=== PATIENT | male | born 1950 | race African-American/Black ===

== ENCOUNTER 2017-02-17 14:37 | Emergency (ER) | payer MEDICARE ==
[~2017-02-17 14:37] MED LIST: Iopamidol 370 76% 100 ML VIAL ONE
[2017-02-17 15:11] LABS: #Basophils 0.1 thou/uL (0.0-0.2); #Lymphocytes 0.9 thou/uL (1.20-3.40); #Monocytes 0.9 thou/uL (0.11-0.59); #Neutrophils 5.5 thou/uL (1.40-6.50); %Basophils 1.8 % (0.0-1.0); %Eosinophils 0.1 % (0.0-10.0); %Lymphocytes 12.5 % (21.0-51.0); %Monocytes 11.9 % (0.0-10.0); %Neutrophils 73.7 % (42.0-75.0); Hemoglobin 14.9 g/dL (14.0-18.0); Mean Corpuscular HGB CONC 35.4 g/dL (32.0-36.0); Mean Corpuscular Hemoglobin 33.5 pg (27.0-31.0); Mean Corpuscular Volume 94.6 fl (80.0-94.0); Mean Platelet Volume 5.8 fL (7.4-10.4); Platelet Count 280 thou/uL (130-400); RBC Distribution Width 9.9 % (11.5-14.5); Red Blood Cell (RBC) Count 4.44 mill/uL (4.70-6.10); White Blood Cell (WBC) Count 7.4 thou/uL (4.8-10.8)
[2017-02-17 15:14] LABS: INR-International Normal Ratio 1.2; PTT 32.2 SEC (22.9-36.1); Prothrombin Time 14.9 SEC (12.0-14.7)
[2017-02-17 15:25] LABS: ALT (SGPT) 18 U/L (8-55); AST (SGOT) 25 U/L (5-34); Albumin 4.5 g/dL (3.4-4.8); Alkaline Phosphatase 76 U/L (40-150); Anion Gap 17 mmol/L (10-20); BUN (Urea Nitrogen) 18 mg/dL (8.4-25.7); Bilirubin, Total 0.6 mg/dL (0.2-1.2); Calc. Creatinine Clearance 0 mL/min (70-130); Calcium 9.9 mg/dL (7.8-10.44); Carbon Dioxide 23 mmol/L (23-31); Chloride 102 mmol/L (98-107); Estimated GFR-MDRD Greater than 90; Globulin 3.7 g/dL (2.4-3.5); Glucose 114 mg/dL (80-115); Lipase 26 U/L (8-78); Potassium 3.7 mmol/L (3.5-5.1); Protein, Total 8.2 g/dL (5.8-8.1); Sodium 138 mmol/L (136-145)
[2017-02-17 15:27] LABS: CKMB 6.5 ng/mL (0-6.6); Troponin I 0.016 ng/mL (< 0.028)
--- NOTE | 2017-02-17 15:38 | CT ---
CT BRAIN: 02/17/17 HISTORY: Altered mental status. Noncontrast enhanced CT images of the brain is obtained. The brain is unremarkable. No evidence of intracranial masses, hemorrhages, strokes or contusions se en. Ventricles are of normal size. IMPRESSION: Normal CT brain. POS: [facility]
--- NOTE | 2017-02-17 15:41 | RAD ---
AP VIEW CHEST 02/17/17 HISTORY: Altered mental status. Two AP views of the chest is obtained. The lungs are well aerated. No evidence of active intrathoracic disease seen. No evidence of effusio ns, pneumonia or pneumothorax seen. IMPRESSION: Unremarkable AP view chest. POS: [facility]
[2017-02-17 15:46] LABS: Bilirubin Negative (Negative); Blood, Urine Negative (Negative); Clarity Clear (Clear); Glucose, Urine (Dipstick) Negative (Negative); Leukocyte Negative (Negative); Nitrite Negative (Negative); Protein, Urine (Dipstick) 100 mg/dL (Neg-Trace); Specific Gravity, Urine 1.025 (1.005-1.030); Urobilinogen 0.2 mg/dL (0.2-1.0); pH, Urine 5.5 (5.0-9.0)
[2017-02-17 15:50] LABS: Bacteria/HPF None Seen HPF (None Seen); RBC/HPF 0-3 HPF (0-3); Sperm/HPF 2+ HPF (None Seen); Squamous Epithelial 0-3 HPF (0-3); WBC/HPF 0-3 HPF (0-3)
[2017-02-17 15:59] LABS: Amphetamine Not Detected (NotDetected); Barbiturates Screen Not Detected (NotDetected); Benzodiazepine Screen Not Detected (NotDetected); Cocaine Metabolite Screen Not Detected (NotDetected); Medtox Control Line Valid? VALID (VALID); Methadone Not Detected (NotDetected); Methamphetamine Not Detected (NotDetected); Opiate Screen Not Detected (NotDetected); Oxycodone Screen Not Detected (NotDetected); Phencyclidine (PCP) Not Detected (NotDetected); THC/Cannabinoid Screen Detected (NotDetected); Tricyclic Screen Not Detected (NotDetected)
[2017-02-17] MEDS ORDERED: Ondansetron HCl/PF 4 MG/2 ML Vial ONE (16:51)
--- NOTE | 2017-02-17 21:23 | CT ---
EXAM: ABDOMEN CT WITH CONTRAST PELVIS CT WITH CONTRAST 02/17/17 HISTORY: Right inguinal hernia repair. Benign prostatic hypertrophy. Hypertension. Hepatitis C. Ankylosing sp ondylitis. Abdominal pain. Left upper quadrant pain. COMPARISON: None. TECHNIQUE: Abdomen and pelvic CT performed with IV contrast. Oral contrast was not administered. Coronal reform atted images are submitted for interpretation. FINDINGS: ABDOMEN CT: Lung bases are clear. Normal heart size. The visualized aorta has an overall normal caliber. There i s atherosclerosis of the infrarenal abdominal aorta with mild narrowing. Celiac artery origin, super ior mesenteric artery origin, bilateral renal arteries are unremarkable. The inferior mesenteric art victorina is not appreciated. Intra and extrahepatic portal vein is patent. Spleen, pancreas, and adrenal glands are unremarkable. The main pancreatic duct has a diameter of 0. 2 cm which is at the upper limits of normal. No obvious masses in the pancreas. There is an enhancing focus in the right hepatic lobe, measuring 0.7 cm. A flash filling hemangioma is favored. There is a hypodensity in the left hepatic lobe measu ring 0.6 cm, too small to further characterize. There is a hypodensity in the right kidney with attenuation coefficient of 28 Hounsfield units. Lesi on measures 1.6 cm. Symmetric enhancement of the kidneys. No evidence of hydronephrosis. Limited roscoe luation of both ureters due to decreased intra-abdominal fat. No obvious calcification along the exp ected course of either ureter. Decreased intra-abdominal fat limits evaluation for inflammatory change. No obvious mesenteric mass, lymphadenopathy, free air or free fluid. In the absence of oral contrast limits evaluation of the alimentary canal. Multiple fluid filled sma ll bowel loops are noted. No evidence of bowel distention. There is a fluid filled segment of small bowel that is at the upper limits of normal with a diameter of approximately 2.5 cm. This finding is nonspecific. Limited evaluation of the ileocecal junction. Appendix is difficult to appreciate on t his exam. There appears to be fecal material and fluid in the right hemicolon. There is fecal material in the sigmoid colon and rectum. PELVIC CT: The urinary bladder is unremarkable. No pelvic mass, lymphadenopathy, free air or free fluid. There is atherosclerosis involving bilateral iliac arteries. There is extensive sclerosis as well as fusion changes involving the visualized vertebra and pelvic structures, compatible with patient's h istory of ankylosing spondylolysis. IMPRESSION: 1. Limited evaluation due to lack of oral contrast and decreased intra-abdominal fat. No defini te acute abnormality in the abdomen or pelvis is appreciated. 2. Incomplete evaluated right renal cortical lesion. Nonemergent renal ultrasound can be perfor med. 3. Pancreatic duct diameter at the upper limits of normal. No obvious pancreatic mass. 4. Probable flash filling hemangioma of the right hepatic lobe. 5. If there is still concern for possible acute abdominal or pelvic pathology, repeat CT with o ral contrast can be performed. POS: [facility]
== END 2017-02-17 20:47 | disposition critical access hospital (66) ==
LOC: BURERS 14:37
DX: R41.82 Altered mental status, unspecified (principal); I10 Essential (primary) hypertension; N28.9 Disorder of kidney and ureter, unspecified; R16.0 Hepatomegaly, not elsewhere classified; M45.9 Ankylosing spondylitis of unspecified sites in spine; F17.210 Nicotine dependence, cigarettes, uncomplicated; Z79.891 Long term (current) use of opiate analgesic; Z79.899 Other long term (current) drug therapy
CPT/HCPCS: 36415; 70450; 71010; 74177; 80053; 80306; 80307; 81003; 81015; 82140; 82553; 83605; 83690; 84484; 85025; 85610; 85730; 87040; 93005; 94760; 96374; A4216; J2405

== ENCOUNTER 2023-11-18 13:25 | Emergency (ER) | payer OTHER ==
[2023-11-18] MEDS ORDERED: Ibuprofen 800 MG TAB ONE (13:48)
== END 2023-11-18 14:50 | disposition home or self-care (01) ==
LOC: BURERS 13:25
DX: J02.9 Acute pharyngitis, unspecified (principal); I10 Essential (primary) hypertension; F17.210 Nicotine dependence, cigarettes, uncomplicated
CPT/HCPCS: 87081; 87430; 87804; 99283